=== PATIENT | female | born 1960 | race Caucasian/White ===

== ENCOUNTER 2019-07-10 10:59 | Emergency (ER) | payer BC, OTHER ==
[~2019-07-10] VITALS: Ht 160 cm; Wt 69.9 kg
[2019-07-10] MEDS ORDERED: cloNIDine HCL 0.1 MG TAB PO ONE (12:15)
[2019-07-10 12:29] LABS: Basophils # (auto) 0 uL; Basophils % (auto) 0.4 % (0.0-2.0); Eosinophils # (auto) 0.1 uL; Eosinophils % (auto) 1.3 % (0.0-7.0); Hematocrit 44.8 % (36.0-46.0); Hemoglobin 15.1 g/dL (12.2-16.2); Lymphocytes # (auto) 2.5 uL; Lymphocytes % (auto) 30.5 % (10.0-50.0); Mean Corpuscular Hgb Conc. 33.7 g/dL (32.0-36.0); Mean Corpuscular Volume 85.8 fL (80.0-100.0); Monocytes # (auto) 0.7 uL; Monocytes % (auto) 7.9 % (0.0-12.0); Neutrophils % (auto) 59.9 % (37.0-80.0); Nucleated Red Blood Cells % 0.1 %; Platelet Count (auto) 303 10^3/uL (140-450); Red Blood Cells 5.22 10^6/uL (4.0-5.20); Red Cell Distribution Width 14.2 % (11.8-14.3); White Blood Cell 8.3 10^3/uL (4.4-10.8)
[2019-07-10 12:51] LABS: INR 0.95 (0.9-1.15); Partial Thromboplastin Time 26.3 sec (23.64-32.05)
[2019-07-10 12:52] LABS: Albumin 4.1 g/dL (3.4-5.0); Anion Gap 6 (5-15); Calcium 9.5 mg/dL (8.5-10.1); Carbon Dioxide 26 mmol/L (21-32); Chloride 108 mmol/L (98-107); Potassium 3.9 mmol/L (3.5-5.1); Sodium 140 mmol/L (136-145)
[2019-07-10 12:57] LABS: Alanine Aminotransferase 33 U/L (13-56); Aspartate Aminotransferase 21 U/L (15-37); BUN/Creatinine Ratio 19.4; Bilirubin, Total 0.4 mg/dL (0.2-1.0); Blood Urea Nitrogen 13 mg/dL (7-18); GFR African American 116 mL/min; GFR Non-African American 96 mL/min; Glucose 93 mg/dL (74-106); Total Protein 8.5 g/dL (6.4-8.2)
[2019-07-10 12:58] LABS: Urine Bacteria FEW /hpf (None Seen); Urine Blood Negative /uL (Negative); Urine Specific Gravity 1.003 (1.001-1.035); Urine WBC 1 /hpf (0 - 5)
[2019-07-10 12:59] LABS: Alkaline Phosphatase 80 U/L (45-117)
[2019-07-10] MEDS ORDERED: LABETALOL HCL 5 MG/ML 4ML SYRINGE IV ONE (14:30)
[2019-07-10] MEDS ORDERED: LABETALOL HCL 5 MG/ML ML 20ML VIAL IV ONE (14:33)
[2019-07-10] MEDS ORDERED: NITROGLYCERIN 0.4 MG SL TAB SL PRN (15:15)
[2019-07-10] MEDS ORDERED: PROMETHAZINE HCL 25 MG/ML 1ML IV PRN (15:15)
[2019-07-10] MEDS ORDERED: MORPHINE SULF INJ 2 MG/ML SYRINGE 1ML IV PRN (15:15)
[2019-07-10] MEDS ORDERED: LABETALOL HCL 5 MG/ML ML 20ML VIAL IV PRN (15:15)
[2019-07-10] MEDS ORDERED: TEMAZEPAM 15 MG CAP PO PRN (15:15)
[2019-07-10] MEDS ORDERED: traMADol HCL 50 MG TAB PO PRN (15:15)
[2019-07-10] MEDS ORDERED: LACTULOSE 20Gm/30ML SOLN PO PRN (15:15)
[2019-07-10] MEDS ORDERED: ASPirin 81 mg TAB PO ONE (15:45)
[2019-07-10] MEDS ORDERED: ASPirin-EC 325mg tab PO ONE (15:45)
[2019-07-10 16:13] VITALS: BP 163/99
[2019-07-10] MEDS ORDERED: ATORVASTATIN 20 MG TAB PO SCH (22:00)
[2019-07-11] MEDS ORDERED: ASPirin 81 mg TAB PO SCH (10:00)
[2019-07-11] MEDS ORDERED: ENOXAPARIN SOD 40 MG/0.4 ML SYRINGE SC SCH (10:00)
== END 2019-07-10 16:28 | disposition short-term general hospital (02) ==
LOC: ER 10:59 → EDBD 10:59 → ER 16:28
DX: I63.9 Cerebral infarction, unspecified (principal); I10 Essential (primary) hypertension; F17.210 Nicotine dependence, cigarettes, uncomplicated; E78.5 Hyperlipidemia, unspecified
CPT/HCPCS: 36415; 70450; 71045; 80053; 81001; 81025; 82550; 83735; 83880; 84484; 85025; 85610; 85652; 85730; 93005; 93886; 96374; 99291